=== PATIENT | male | born 1990 | race Caucasian/White ===

== ENCOUNTER 2017-08-12 23:11 | Emergency (ER) | payer MEDICAID, OTHER ==
[~2017-08-12] VITALS: Ht 167.6 cm; Wt 86.3 kg
[2017-08-12 23:23] VITALS: BP 126/102
[2017-08-13 00:17] LABS: URINE AMPHETAMINE SCREEN NEGATIVE (Neg); URINE BARBITUATE SCREEN NEGATIVE (Neg); URINE BENZODIAZEPINES SCREEN NEGATIVE (Neg); URINE CANNABINOID SCREEN POSITIVE (Neg); URINE COCAINE SCREEN NEGATIVE (Neg); URINE METHADONE SCREEN NEGATIVE (Neg); URINE OPIATE SCREEN NEGATIVE (Neg); URINE PHENCYCLIDINE SCREEN NEGATIVE (Neg)
[2017-08-13 00:25] LABS: CLARITY,URINE CLEAR (Clear); COLOR,URINE STRAW (Yellow); GLUCOSE, URINE NEGATIVE (Neg); KETONES,URINE TRACE mg/dl (Neg); LEUKOCYTE ESTERASE ,URINE NEGATIVE (Neg); NITRITES, URINE NEGATIVE (Neg); OCCULT BLOOD,URINE NEGATIVE (Neg); PROTEIN,URINE NEGATIVE (Neg); UROBILINOGEN,URINE 0.2 E.U/dL (0.2-1.0)
[2017-08-13 00:30] LABS: UA COLLECTION TYPE CLN CATCH MIDSTREAM
[2017-08-13] MEDS ORDERED: LORazepam 1 MG tablet PO ONE (00:50)
[2017-08-13] MEDS ORDERED: nicotine 21mg patch - 24 hr TD ONE (00:50)
[2017-08-13 01:07] LABS: ACETAMINOPHEN < 2.0 UG/ML (10-30); ALANINE AMINOTRANSFERASE 56 U/L (12-78); ALBUMIN 4.2 G/DL (3.4-5.0); ALBUMIN/GLOBULIN RATIO 1.1 (1.1-1.5); ALKALINE PHOSPHATASE 67 IU/L (46-116); ANION GAP 14 (8-16); ASPARTATE AMINO TRANSFERASE 35 U/L (10-37); BILIRUBIN,TOTAL 0.7 MG/DL (0.1-1.0); BLOOD UREA NITROGEN 11 MG/DL (7-18); BUN/CREATININE RATIO 14.9 (5.4-32.0); CALCIUM 9.1 MG/DL (8.5-10.1); CHLORIDE 101 MMOL/L (99-107); CREATININE 0.74 MG/DL (0.60-1.10); ETHANOL < 0.010 GM/DL (0.0-0.010); GLUCOSE 96 MG/DL (70-104); POTASSIUM 3.5 MMOL/L (3.5-5.1); SODIUM 138 MMOL/L (135-145); TOTAL CARBON DIOXIDE 23.4 MMOL/L (24-32); TOTAL PROTEIN 8.1 G/DL (6.4-8.2); eGFR > 90 ML/MIN
[2017-08-13 01:55] LABS: BASOPHILS # (AUTO) 0.1 X10'3 (0-0.2); BASOPHILS % (AUTO) 0.3 % (0-1); EOSINOPHILS # (AUTO) 0.4 X10'3 (0-0.9); EOSINOPHILS % (AUTO) 2.1 % (0-6); HEMATOCRIT 45.5 % (42.0-52.0); HEMOGLOBIN 15.7 g/dl (14.0-17.9); LYMPHOCYTES # (AUTO) 3.2 X10'3 (1.1-4.8); LYMPHOCYTES % (AUTO) 15.6 % (21-51); MEAN CORPUSCULAR HEMOGLOBIN 31.1 PG (27.0-31.0); MEAN CORPUSCULAR HGB CONC 34.5 % (33.0-36.5); MEAN CORPUSCULAR VOLUME 90.3 FL (78-98); MEAN PLATELET VOLUME 8.4 FL (7.4-10.4); MONOCYTES # (AUTO) 1.2 X10'3 (0-0.9); MONOCYTES % (AUTO) 5.7 % (2-12); NEUTROPHILS # (AUTO) 15.8 X10'3 (1.8-7.7); NEUTROPHILS % (AUTO) 76.3 % (42-75); PLATELET COUNT 364 X10'3 (140-440); RED BLOOD COUNT 5.04 X10'6 (4.70-6.10); WHITE BLOOD COUNT 20.6 X10'3 (4.5-11.0)
== END 2017-08-13 01:39 | disposition left against medical advice (07) ==
LOC: ER 23:12
DX: F41.9 Anxiety disorder, unspecified (principal); Z59.0 Homelessness; Z60.2 Problems related to living alone
CPT/HCPCS: 36415; 80053; 80305; 80320; 80329; 81003; 84443; 85025; 99284

== ENCOUNTER 2020-12-19 15:26 | Emergency (ER) | payer MEDICAID, OTHER ==
[~2020-12-19] VITALS: Ht 167.6 cm; Wt 90.6 kg
[2020-12-19 16:34] VITALS: BP 159/81
[2020-12-19 17:27] LABS: CLARITY,URINE CLEAR (Clear); COLOR,URINE YELLOW (Yellow); GLUCOSE, URINE NEGATIVE (Neg); KETONES,URINE 15 mg/dl (Neg); LEUKOCYTE ESTERASE ,URINE NEGATIVE (Neg); NITRITES, URINE NEGATIVE (Neg); OCCULT BLOOD,URINE TRACE-INTACT (Neg); PH,URINE 5.5 (4.8-8.0); PROTEIN,URINE NEGATIVE (Neg); UROBILINOGEN,URINE 0.2 E.U/dL (0.2-1.0)
[2020-12-19 17:32] LABS: UA COLLECTION TYPE CLN CATCH MIDSTREAM
[2020-12-19 17:34] LABS: BACTERIA,URINE NONE SEEN /HPF (Neg); MUCUS STRANDS NONE SEEN /LPF (Neg); RBC,URINE NONE SEEN /HPF (0-2); SQUAMOUS EPITHELIAL CELL,UR FEW /LPF (FEW); WBC,URINE 0-4 /HPF (0-4)
[2020-12-19 17:35] LABS: URINE AMPHETAMINE SCREEN NEGATIVE (Neg); URINE BARBITUATE SCREEN NEGATIVE (Neg); URINE BENZODIAZEPINES SCREEN NEGATIVE (Neg); URINE CANNABINOID SCREEN POSITIVE (Neg); URINE COCAINE SCREEN POSITIVE (Neg); URINE METHADONE SCREEN NEGATIVE (Neg); URINE OPIATE SCREEN NEGATIVE (Neg); URINE PHENCYCLIDINE SCREEN NEGATIVE (Neg)
[2020-12-19 17:39] LABS: D-DIMER < 0.19 MG/L FEU (0-0.50)
== END 2020-12-19 20:17 | disposition home or self-care (01) ==
LOC: ER 15:26
DX: R00.2 Palpitations (principal); F12.90 Cannabis use, unspecified, uncomplicated; Z59.0 Homelessness; Z72.89 Other problems related to lifestyle
CPT/HCPCS: 36415; 80305; 81001; 84484; 85379; 93005; 99284

== ENCOUNTER 2021-09-28 05:34 | Emergency (ER) | payer MEDICAID, OTHER ==
[~2021-09-28] VITALS: Ht 172.7 cm; Wt 90.9 kg
[2021-09-28 05:50] VITALS: BP 150/92
== END 2021-09-28 06:11 ==
LOC: ER 05:34
DX: F10.929 Alcohol use, unspecified with intoxication, unspecified (principal); F12.10 Cannabis abuse, uncomplicated; Z59.00 Homelessness unspecified; Y90.9 Presence of alcohol in blood, level not specified
CPT/HCPCS: 99283

== ENCOUNTER 2021-10-13 15:40 | Emergency (ER) | payer MEDICAID ==
[~2021-10-13] VITALS: Ht 170.2 cm; Wt 81.8 kg
[2021-10-13 15:48] VITALS: BP 139/80
[2021-10-13] MEDS ORDERED: oxyCODONE IR 5mg (immed. release) tablet PO ONE (18:35)
[2021-10-13] MEDS ORDERED: chlordiazePOXIDE 25mg capsule PO ONE (18:35)
[2021-10-13] MEDS ORDERED: ondansetron 4mg rapidly disintigrating tab PO ONE (18:35)
[2021-10-13 19:00] LABS: BASOPHILS # (AUTO) 0.1 X10'3 (0-0.2); BASOPHILS % (AUTO) 1.1 % (0-1); EOSINOPHILS # (AUTO) 0.7 X10'3 (0-0.9); EOSINOPHILS % (AUTO) 6.1 % (0-6); HEMATOCRIT 44.7 % (42.0-52.0); HEMOGLOBIN 15.5 g/dl (14.0-17.9); LYMPHOCYTES # (AUTO) 3.1 X10'3 (1.1-4.8); LYMPHOCYTES % (AUTO) 27.5 % (21-51); MEAN CORPUSCULAR HEMOGLOBIN 32.8 PG (27.0-31.0); MEAN CORPUSCULAR HGB CONC 34.7 g/dL (33.0-36.5); MEAN CORPUSCULAR VOLUME 94.5 FL (78-98); MEAN PLATELET VOLUME 7.6 FL (7.4-10.4); MONOCYTES # (AUTO) 0.5 X10'3 (0-0.9); MONOCYTES % (AUTO) 4.7 % (2-12); NEUTROPHILS # (AUTO) 6.8 X10'3 (1.8-7.7); NEUTROPHILS % (AUTO) 60.6 % (42-75); PLATELET COUNT 418 X10'3 (140-440); RED BLOOD COUNT 4.73 X10'6 (4.70-6.10); WHITE BLOOD COUNT 11.3 X10'3 (4.5-11.0)
[2021-10-13 19:08] LABS: ALANINE AMINOTRANSFERASE 53 U/L (12-78); ALBUMIN 3.7 G/DL (3.4-5.0); ALKALINE PHOSPHATASE 78 IU/L (46-116); ANION GAP 10 (8-16); ASPARTATE AMINO TRANSFERASE 34 U/L (10-37); BILIRUBIN,TOTAL 0.2 MG/DL (0.1-1.0); BLOOD UREA NITROGEN 9 MG/DL (7-18); BUN/CREATININE RATIO 11.8 (5.4-32.0); CALCIUM 8.7 MG/DL (8.5-10.1); CHLORIDE 103 MMOL/L (99-107); CREATININE 0.76 MG/DL (0.60-1.10); GLUCOSE 153 MG/DL (70-104); POTASSIUM 3.7 MMOL/L (3.5-5.1); SODIUM 136 MMOL/L (135-145); TOTAL CARBON DIOXIDE 22.6 MMOL/L (24-32); TOTAL PROTEIN 7.5 G/DL (6.4-8.2); eGFR > 90 ML/MIN
[2021-10-13 19:10] LABS: URINE AMPHETAMINE SCREEN NEGATIVE (Neg); URINE BARBITUATE SCREEN NEGATIVE (Neg); URINE BENZODIAZEPINES SCREEN NEGATIVE (Neg); URINE CANNABINOID SCREEN POSITIVE (Neg); URINE COCAINE SCREEN NEGATIVE (Neg); URINE METHADONE SCREEN NEGATIVE (Neg); URINE OPIATE SCREEN NEGATIVE (Neg); URINE PHENCYCLIDINE SCREEN NEGATIVE (Neg)
[2021-10-13 19:13] LABS: ETHANOL 0.044 GM/DL (0.0-0.010)
[2021-10-13] MEDS ORDERED: OXYC-481 PO (20:35)
== END 2021-10-13 21:06 | disposition home or self-care (01) ==
LOC: ER 15:40
DX: R07.9 Chest pain, unspecified (principal); M54.9 Dorsalgia, unspecified; R41.0 Disorientation, unspecified; F12.10 Cannabis abuse, uncomplicated; W19.XXXA Unspecified fall, initial encounter; Y93.89 Activity, other specified; Y92.89 Other specified places as the place of occurrence of the external cause; Y99.8 Other external cause status
CPT/HCPCS: 36415; 70450; 71046; 71250; 72125; 80053; 80305; 80320; 84484; 85025; 93005; 99285

== ENCOUNTER 2021-10-20 06:10 | Emergency (ER) | payer MEDICAID ==
[~2021-10-20] VITALS: Ht 167.6 cm; Wt 79.1 kg
[2021-10-20 07:50] VITALS: BP 121/70
== END 2021-10-20 09:11 | disposition home or self-care (01) ==
LOC: ER 06:12
DX: R07.81 Pleurodynia (principal); F12.90 Cannabis use, unspecified, uncomplicated; Z59.00 Homelessness unspecified; Y04.0XXA Assault by unarmed brawl or fight, initial encounter; Y93.89 Activity, other specified; Y92.89 Other specified places as the place of occurrence of the external cause; Y99.9 Unspecified external cause status
CPT/HCPCS: 71101; 99284

== ENCOUNTER 2023-09-10 11:33 | Emergency (ER) | payer MEDICAID ==
[~2023-09-10] VITALS: Ht 167.6 cm; Wt 76.2 kg
[2023-09-10 14:08] LABS: BILIRUBIN,URINE NEGATIVE (Neg); CLARITY,URINE CLEAR (Clear); COLOR,URINE YELLOW (Yellow); GLUCOSE, URINE NEGATIVE (Neg); KETONES,URINE NEGATIVE (Neg); LEUKOCYTE ESTERASE ,URINE NEGATIVE (Neg); NITRITES, URINE NEGATIVE (Neg); OCCULT BLOOD,URINE NEGATIVE (Neg); PROTEIN,URINE NEGATIVE (Neg); UROBILINOGEN,URINE 0.2 E.U/dL (0.2-1.0)
[2023-09-10 14:10] LABS: BASOPHILS # (AUTO) 0.1 X10'3 (0-0.2); BASOPHILS % (AUTO) 1.3 % (0-1); EOSINOPHILS # (AUTO) 0.3 X10'3 (0-0.9); EOSINOPHILS % (AUTO) 3.1 % (0-6); HEMATOCRIT 45.6 % (42.0-52.0); HEMOGLOBIN 15.2 g/dl (14.0-17.9); LYMPHOCYTES # (AUTO) 3.1 X10'3 (1.1-4.8); LYMPHOCYTES % (AUTO) 31.6 % (21-51); MEAN CORPUSCULAR HEMOGLOBIN 31.3 PG (27.0-31.0); MEAN CORPUSCULAR HGB CONC 33.2 g/dL (33.0-36.5); MEAN CORPUSCULAR VOLUME 94.3 FL (78-98); MEAN PLATELET VOLUME 7.2 FL (7.4-10.4); MONOCYTES # (AUTO) 0.6 X10'3 (0-0.9); MONOCYTES % (AUTO) 5.6 % (2-12); NEUTROPHILS # (AUTO) 5.8 X10'3 (1.8-7.7); NEUTROPHILS % (AUTO) 58.4 % (42-75); PLATELET COUNT 311 X10'3 (140-440); RED BLOOD COUNT 4.84 X10'6 (4.70-6.10); RED CELL DISTRIBUTION WIDTH 13.2 % (11.5-14.5); WHITE BLOOD COUNT 9.9 X10'3 (4.5-11.0)
[2023-09-10 14:15] LABS: ALBUMIN 3.6 G/DL (3.4-5.0); ANION GAP 8 (8-16); BLOOD UREA NITROGEN 9 MG/DL (7-18); BUN/CREATININE RATIO 12.9 (10.0-20.0); CALCIUM 8.7 MG/DL (8.5-10.1); CHLORIDE 105 MMOL/L (99-107); GLUCOSE 87 MG/DL (70-104); POTASSIUM 4.3 MMOL/L (3.5-5.1); SODIUM 140 MMOL/L (135-145); TOTAL CARBON DIOXIDE 26.9 MMOL/L (24-32); eCRCL 137 ML/MIN; eGFR > 90 ML/MIN
[2023-09-10 14:15] LABS: UA COLLECTION TYPE CLN CATCH MIDSTREAM
[2023-09-10 14:20] LABS: ETHANOL < 10 MG/DL (<10)
[2023-09-10 15:06] LABS: URINE AMPHETAMINE SCREEN NEGATIVE (Neg); URINE BARBITUATE SCREEN NEGATIVE (Neg); URINE BENZODIAZEPINES SCREEN NEGATIVE (Neg); URINE CANNABINOID SCREEN POSITIVE (Neg); URINE COCAINE SCREEN POSITIVE (Neg); URINE METHADONE SCREEN NEGATIVE (Neg); URINE OPIATE SCREEN NEGATIVE (Neg); URINE PHENCYCLIDINE SCREEN NEGATIVE (Neg)
[2023-09-10 15:11] LABS: THYROID STIMULATING HORMONE 0.32 ulU/ml (0.34-4.50)
[2023-09-10] MEDS: OLANZapine 2.5MG tablet PO ONE (18:28)
[2023-09-10] MEDS: OLANZapine 2.5MG tablet PO SCH (20:06)
[2023-09-11 05:50] VITALS: BP 104/57; PULSE 69; O2SAT 99
[2023-09-11] MEDS: nicotine 21mg patch - 24 hr TD SCH (08:42)
[2023-09-11 08:52] VITALS: RESP 14
[2023-09-11 15:15] VITALS: TEMP 97.7
== END 2023-09-11 15:41 | disposition home or self-care (01) ==
LOC: ER 11:34
DX: R45.851 Suicidal ideations (principal); Z20.822 Contact with and (suspected) exposure to COVID-19; F12.90 Cannabis use, unspecified, uncomplicated; F32.A Depression, unspecified
CPT/HCPCS: 36415; 80048; 80305; 80320; 81003; 84443; 85025; 87811; 99285

== ENCOUNTER 2023-09-20 10:19 | Emergency (ER) | payer MEDICAID ==
[~2023-09-20] VITALS: Ht 175.3 cm; Wt 71.3 kg
[2023-09-20 10:20] VITALS: BP 123/75
[2023-09-20 11:27] LABS: BASOPHILS # (AUTO) 0.1 X10'3 (0-0.2); BASOPHILS % (AUTO) 0.3 % (0-1); EOSINOPHILS # (AUTO) 0.2 X10'3 (0-0.9); EOSINOPHILS % (AUTO) 1.1 % (0-6); HEMATOCRIT 40.3 % (42.0-52.0); HEMOGLOBIN 13.7 g/dl (14.0-17.9); LYMPHOCYTES # (AUTO) 1.5 X10'3 (1.1-4.8); LYMPHOCYTES % (AUTO) 9.2 % (21-51); MEAN CORPUSCULAR HEMOGLOBIN 31.9 PG (27.0-31.0); MEAN CORPUSCULAR HGB CONC 34.1 g/dL (33.0-36.5); MEAN CORPUSCULAR VOLUME 93.7 FL (78-98); MEAN PLATELET VOLUME 7.8 FL (7.4-10.4); MONOCYTES # (AUTO) 1.7 X10'3 (0-0.9); MONOCYTES % (AUTO) 10.1 % (2-12); NEUTROPHILS # (AUTO) 13.1 X10'3 (1.8-7.7); NEUTROPHILS % (AUTO) 79.3 % (42-75); PLATELET COUNT 302 X10'3 (140-440); RED CELL DISTRIBUTION WIDTH 13.1 % (11.5-14.5); WHITE BLOOD COUNT 16.5 X10'3 (4.5-11.0)
[2023-09-20 11:43] LABS: ALANINE AMINOTRANSFERASE 30 U/L (12-78); ALBUMIN 3.3 G/DL (3.4-5.0); ALBUMIN/GLOBULIN RATIO 0.8 (1.1-1.5); ALKALINE PHOSPHATASE 60 IU/L (46-116); ANION GAP 11 (8-16); ASPARTATE AMINO TRANSFERASE 23 U/L (10-37); BLOOD UREA NITROGEN 10 MG/DL (7-18); BUN/CREATININE RATIO 13.7 (10.0-20.0); CALCIUM 9.1 MG/DL (8.5-10.1); CHLORIDE 97 MMOL/L (99-107); CREATININE 0.73 MG/DL (0.60-1.10); GLUCOSE 94 MG/DL (70-104); LIPASE 12 U/L (16-77); POTASSIUM 3.2 MMOL/L (3.5-5.1); SODIUM 134 MMOL/L (135-145); TOTAL CARBON DIOXIDE 25.9 MMOL/L (24-32); TOTAL PROTEIN 7.6 G/DL (6.4-8.2); eCRCL 145 ML/MIN; eGFR > 90 ML/MIN
[2023-09-20 12:39] LABS: BILIRUBIN,URINE MODERATE (Neg); COLOR,URINE YELLOW (Yellow); GLUCOSE, URINE NEGATIVE (Neg); KETONES,URINE 40 mg/dl (Neg); LEUKOCYTE ESTERASE ,URINE NEGATIVE (Neg); NITRITES, URINE NEGATIVE (Neg); OCCULT BLOOD,URINE TRACE-INTACT (Neg); PROTEIN,URINE TRACE mg/dl (Neg)
[2023-09-20 12:46] LABS: CLARITY,URINE SLIGHTLY CLOUDY (Clear); MUCUS STRANDS MODERATE /LPF (Neg); UA COLLECTION TYPE NON-SPECIFIED
[2023-09-20 12:47] LABS: AMORPHOUS URATES 1+; BACTERIA,URINE FEW /HPF (Neg); SQUAMOUS EPITHELIAL CELL,UR FEW /LPF (FEW)
[2023-09-20 12:48] LABS: SPERM FEW /HPF (NEGATIVE); WBC,URINE 0-4 /HPF (0-4)
[2023-09-20] MEDS ORDERED: AMOX-117 PO (13:17)
[2023-09-20 13:28] VITALS: PULSE 99; RESP 18; TEMP 100.2; O2SAT 99
== END 2023-09-20 13:31 | disposition home or self-care (01) ==
LOC: ER 10:19
DX: K57.92 Diverticulitis of intestine, part unspecified, without perforation or abscess without bleeding (principal); F12.90 Cannabis use, unspecified, uncomplicated
CPT/HCPCS: 36415; 74176; 80053; 81001; 83690; 85025; 99284

== ENCOUNTER 2023-09-30 14:10 | Inpatient (IN) | payer MEDICAID ==
[~2023-09-30] VITALS: Ht 167.6 cm; Wt 67.5 kg
[~2023-09-30 14:10] MED LIST: AMOX-117 PO
[2023-09-30 14:58] LABS: MEAN PLATELET VOLUME 6.6 FL (7.4-10.4); RED CELL DISTRIBUTION WIDTH 12.9 % (11.5-14.5)
[2023-09-30 15:00] LABS: BASOPHILS % (AUTO) 0.2 % (0-1); EOSINOPHILS # (AUTO) 0.1 X10'3 (0-0.9); EOSINOPHILS % (AUTO) 0.3 % (0-6); HEMATOCRIT 36.1 % (42.0-52.0); LYMPHOCYTES # (AUTO) 1.6 X10'3 (1.1-4.8); LYMPHOCYTES % (AUTO) 7.5 % (21-51); MEAN CORPUSCULAR HEMOGLOBIN 30.7 PG (27.0-31.0); MEAN CORPUSCULAR HGB CONC 33.4 g/dL (33.0-36.5); MEAN CORPUSCULAR VOLUME 92.1 FL (78-98); MONOCYTES # (AUTO) 1.6 X10'3 (0-0.9); MONOCYTES % (AUTO) 7.4 % (2-12); NEUTROPHILS # (AUTO) 18.6 X10'3 (1.8-7.7); NEUTROPHILS % (AUTO) 84.6 % (42-75); PLATELET COUNT 541 X10'3 (140-440); RED BLOOD COUNT 3.91 X10'6 (4.70-6.10)
[2023-09-30 15:07] LABS: ALBUMIN/GLOBULIN RATIO 0.6 (1.1-1.5); ALKALINE PHOSPHATASE 71 IU/L (46-116); ASPARTATE AMINO TRANSFERASE 13 U/L (10-37); BILIRUBIN,DIRECT 0.1 MG/DL (0-0.3); BILIRUBIN,TOTAL 0.4 MG/DL (0.1-1.0); LIPASE 11 U/L (16-77); TOTAL PROTEIN 7.1 G/DL (6.4-8.2)
[2023-09-30 15:23] LABS: TOTAL CELLS COUNTED 100
[2023-09-30 15:24] LABS: PLATELET ESTIMATE INCREASED
[2023-09-30 15:25] LABS: POIKILOCYTOSIS FEW
[2023-09-30] MEDS: morphine 2 MG/ML inj. syringe IV PRN ×2 (15:32→18:29)
[2023-09-30] MEDS: ondansetron/PF 4mg/2ml inj IV ONE (15:32)
[2023-09-30] MEDS: normal saline 1000ML IV soln IVB ONE (15:33)
[2023-09-30] MEDS ORDERED: HYDROcodone/acetaminophen 5mg/325mg tablet PO PRN (15:35)
[2023-09-30] MEDS ORDERED: magnesium 4gm in 100ml NS 100 ML IV PRN (15:35)
[2023-09-30] MEDS ORDERED: morphine 2 MG/ML inj. syringe IV PRN (15:35)
[2023-09-30] MEDS ORDERED: acetaminophen 325mg tablet PO PRN (15:35)
[2023-09-30 15:40] LABS: ALANINE AMINOTRANSFERASE 18 U/L (12-78); ALBUMIN 2.7 G/DL (3.4-5.0)
[2023-09-30 15:41] LABS: BILIRUBIN,URINE NEGATIVE (Neg); CLARITY,URINE CLEAR (Clear); COLOR,URINE YELLOW (Yellow); GLUCOSE, URINE NEGATIVE (Neg); KETONES,URINE 15 mg/dl (Neg); LEUKOCYTE ESTERASE ,URINE NEGATIVE (Neg); NITRITES, URINE NEGATIVE (Neg); OCCULT BLOOD,URINE NEGATIVE (Neg); PH,URINE 6.5 (4.8-8.0); PROTEIN,URINE NEGATIVE (Neg)
[2023-09-30 15:45] LABS: URINE AMPHETAMINE SCREEN POSITIVE (Neg); URINE BARBITUATE SCREEN NEGATIVE (Neg); URINE BENZODIAZEPINES SCREEN NEGATIVE (Neg); URINE CANNABINOID SCREEN POSITIVE (Neg); URINE COCAINE SCREEN NEGATIVE (Neg); URINE METHADONE SCREEN NEGATIVE (Neg); URINE PHENCYCLIDINE SCREEN NEGATIVE (Neg)
[2023-09-30 15:46] LABS: UA COLLECTION TYPE VOIDED
[2023-09-30] MEDS: metroNIDAZOLE-Flagyl 500mg/NS 100 ML IV ONE (15:58)
[2023-09-30] MEDS ORDERED: NO HOME MEDS (17:06)
[2023-09-30 17:09] LABS: ALBUMIN 2.7 G/DL (3.4-5.0); ANION GAP 9 (8-16); BLOOD UREA NITROGEN 5 MG/DL (7-18); BUN/CREATININE RATIO 7.9 (10.0-20.0); CALCIUM 8.7 MG/DL (8.5-10.1); CHLORIDE 97 MMOL/L (99-107); CREATININE 0.63 MG/DL (0.60-1.10); GLUCOSE 91 MG/DL (70-104); POTASSIUM 3.4 MMOL/L (3.5-5.1); SODIUM 133 MMOL/L (135-145); TOTAL CARBON DIOXIDE 27.3 MMOL/L (24-32); eCRCL 152 ML/MIN; eGFR > 90 ML/MIN
[2023-09-30] MEDS: levoFLOXACIN-Levaquin 500mg/D5 100 ML IV ONE (17:12)
[2023-09-30 18:20] VITALS: BP 120/62; PULSE 97; RESP 20; TEMP 98.4; O2SAT 97
[2023-09-30 19:00] VITALS: RESP 18; O2SAT 99
[2023-09-30] MEDS: normal saline 1000ml 1,000 ML IV SCH (20:00)
[2023-09-30] MEDS: levoFLOXACIN-Levaquin 250mg/D5 50 ML IV ONE (20:07)
[2023-09-30] MEDS: heparin, porcine 5000 units/ml vial SQ SCH (20:19)
[2023-09-30] MEDS: HYDROcodone/acetaminophen 10/325mg tab PO PRN (20:28)
[2023-09-30 22:00] VITALS: BP 106/58; PULSE 96; RESP 16; TEMP 98.9; O2SAT 99
[2023-09-30] MEDS: metroNIDAZOLE-Flagyl 500mg/NS 100 ML IV SCH (23:59)
[2023-10-01] MEDS ORDERED: potassium Cl 20 mEq SR tablet PO PRN ×2 (01:40)
[2023-10-01] MEDS ORDERED: magnesium 2GM in 50ml NS 50 ML IV PRN (01:40)
[2023-10-01] MEDS ORDERED: magnesium Cl slow-release 64mg tablet PO PRN (01:40)
[2023-10-01] MEDS ORDERED: magnesium 4gm in 100ml NS 100 ML IV PRN (01:40)
[2023-10-01] MEDS: potassium Cl 40MEQ/1/2NS 520ml 520 ML IV PRN (02:28)
[2023-10-01 05:52] LABS: BASOPHILS # (AUTO) 0.1 X10'3 (0-0.2); BASOPHILS % (AUTO) 0.2 % (0-1); EOSINOPHILS # (AUTO) 0.1 X10'3 (0-0.9); EOSINOPHILS % (AUTO) 0.5 % (0-6); HEMATOCRIT 35.5 % (42.0-52.0); HEMOGLOBIN 11.8 g/dl (14.0-17.9); LYMPHOCYTES # (AUTO) 1.7 X10'3 (1.1-4.8); LYMPHOCYTES % (AUTO) 6.9 % (21-51); MEAN CORPUSCULAR HEMOGLOBIN 30.6 PG (27.0-31.0); MEAN CORPUSCULAR HGB CONC 33.2 g/dL (33.0-36.5); MEAN CORPUSCULAR VOLUME 92.3 FL (78-98); MEAN PLATELET VOLUME 7.1 FL (7.4-10.4); MONOCYTES # (AUTO) 1.8 X10'3 (0-0.9); MONOCYTES % (AUTO) 7.3 % (2-12); NEUTROPHILS # (AUTO) 20.7 X10'3 (1.8-7.7); NEUTROPHILS % (AUTO) 85.1 % (42-75); PLATELET COUNT 531 X10'3 (140-440); RED BLOOD COUNT 3.85 X10'6 (4.70-6.10); RED CELL DISTRIBUTION WIDTH 13.2 % (11.5-14.5); WHITE BLOOD COUNT 24.3 X10'3 (4.5-11.0)
[2023-10-01 06:00] VITALS: BP 115/69; PULSE 77; RESP 16; TEMP 98.3; O2SAT 98
[2023-10-01 06:06] LABS: ALBUMIN 2.3 G/DL (3.4-5.0); ANION GAP 8 (8-16); BLOOD UREA NITROGEN 4 MG/DL (7-18); BUN/CREATININE RATIO 6.3 (10.0-20.0); C-REACTIVE PROTEIN 22.85 MG/DL (0.0-0.5); CALCIUM 8.4 MG/DL (8.5-10.1); CHLORIDE 102 MMOL/L (99-107); CREATININE 0.63 MG/DL (0.60-1.10); GLUCOSE 92 MG/DL (70-104); POTASSIUM 4.1 MMOL/L (3.5-5.1); SODIUM 137 MMOL/L (135-145); TOTAL CARBON DIOXIDE 27.3 MMOL/L (24-32); eCRCL 152 ML/MIN; eGFR > 90 ML/MIN
[2023-10-01] MEDS: piperacillin/tazo 3.375gm/50ml 50 ML IV SCH (08:57)
[2023-10-01] MEDS: nicotine 7mg patch - 24hr TD SCH (09:07)
[2023-10-01] MEDS: docusate sod 100mg capsule PO ONE (09:18)
[2023-10-01] MEDS: K and/or MAG REPLACEMENT MC SCH (09:24)
[2023-10-01 12:00] VITALS: BP 109/68; PULSE 81; RESP 16; TEMP 98.4; O2SAT 98
[2023-10-01] MEDS ORDERED: levoFLOXACIN-Levaquin 750MG/D5 150 ML IV SCH (14:00)
[2023-10-01 19:00] VITALS: BP 107/67; PULSE 86; RESP 13; TEMP 98.4; O2SAT 97
[2023-10-01 20:00] VITALS: RESP 16; O2SAT 97
[2023-10-01] MEDS: lactulose 20gm/30ml cup PO SCH (20:30)
[2023-10-01] MEDS: docusate sod 100mg capsule PO SCH (20:30)
[2023-10-01 22:00] VITALS: BP 119/76; PULSE 74; RESP 14; TEMP 97.8; O2SAT 98
[2023-10-02 06:00] VITALS: BP 114/73; PULSE 62; RESP 12; TEMP 97; O2SAT 98
[2023-10-02 06:06] LABS: BASOPHILS # (AUTO) 0.1 X10'3 (0-0.2); BASOPHILS % (AUTO) 0.4 % (0-1); EOSINOPHILS # (AUTO) 0.2 X10'3 (0-0.9); EOSINOPHILS % (AUTO) 1.2 % (0-6); HEMATOCRIT 34.8 % (42.0-52.0); HEMOGLOBIN 11.4 g/dl (14.0-17.9); LYMPHOCYTES # (AUTO) 2.2 X10'3 (1.1-4.8); LYMPHOCYTES % (AUTO) 11.1 % (21-51); MEAN CORPUSCULAR HEMOGLOBIN 30.4 PG (27.0-31.0); MEAN CORPUSCULAR HGB CONC 32.8 g/dL (33.0-36.5); MEAN CORPUSCULAR VOLUME 92.7 FL (78-98); MEAN PLATELET VOLUME 6.8 FL (7.4-10.4); MONOCYTES % (AUTO) 9.8 % (2-12); NEUTROPHILS # (AUTO) 15.7 X10'3 (1.8-7.7); NEUTROPHILS % (AUTO) 77.5 % (42-75); PLATELET COUNT 585 X10'3 (140-440); RED BLOOD COUNT 3.76 X10'6 (4.70-6.10); RED CELL DISTRIBUTION WIDTH 13.1 % (11.5-14.5); WHITE BLOOD COUNT 20.2 X10'3 (4.5-11.0)
[2023-10-02 06:25] LABS: ALBUMIN 2.1 G/DL (3.4-5.0); ANION GAP 6 (8-16); BLOOD UREA NITROGEN 3 MG/DL (7-18); BUN/CREATININE RATIO 4.2 (10.0-20.0); CALCIUM 8.4 MG/DL (8.5-10.1); CHLORIDE 101 MMOL/L (99-107); CREATININE 0.71 MG/DL (0.60-1.10); GLUCOSE 91 MG/DL (70-104); POTASSIUM 3.8 MMOL/L (3.5-5.1); SODIUM 136 MMOL/L (135-145); TOTAL CARBON DIOXIDE 29.1 MMOL/L (24-32); eCRCL 135 ML/MIN; eGFR > 90 ML/MIN
[2023-10-02] MEDS: piperacillin/tazo 3.375gm/50ml 50 ML IV SCH (09:00)
[2023-10-02 11:00] VITALS: BP 121/68; PULSE 62; RESP 16; TEMP 98.8; O2SAT 99
[2023-10-02] MEDS: ondansetron/PF 4mg/2ml inj IV PRN (15:18)
[2023-10-02 18:00] VITALS: BP 120/79; PULSE 72; RESP 14; TEMP 98.9; O2SAT 98
[2023-10-02 20:03] LABS: GASTRIC OCCULT BLOOD NEGATIVE (Neg)
[2023-10-02] MEDS: diatr meglu/diatrizoate 30ml oral sol.-(3 dose) bottle PO SCH (21:54)
[2023-10-02 22:00] VITALS: BP 119/78; PULSE 67; RESP 14; TEMP 98.1; O2SAT 98
[2023-10-03] MEDS: piperacillin/tazo 3.375gm/50ml 50 ML IV SCH (05:00)
[2023-10-03 05:56] LABS: BASOPHILS # (AUTO) 0.1 X10'3 (0-0.2); BASOPHILS % (AUTO) 0.6 % (0-1); EOSINOPHILS % (AUTO) 0 % (0-6); HEMOGLOBIN 12.4 g/dl (14.0-17.9); LYMPHOCYTES # (AUTO) 1.1 X10'3 (1.1-4.8); LYMPHOCYTES % (AUTO) 5.8 % (21-51); MEAN CORPUSCULAR HEMOGLOBIN 30.7 PG (27.0-31.0); MEAN CORPUSCULAR HGB CONC 33.5 g/dL (33.0-36.5); MEAN CORPUSCULAR VOLUME 91.6 FL (78-98); MEAN PLATELET VOLUME 6.6 FL (7.4-10.4); MONOCYTES # (AUTO) 1.1 X10'3 (0-0.9); MONOCYTES % (AUTO) 5.8 % (2-12); NEUTROPHILS # (AUTO) 16.9 X10'3 (1.8-7.7); NEUTROPHILS % (AUTO) 87.8 % (42-75); PLATELET COUNT 650 X10'3 (140-440); RED BLOOD COUNT 4.04 X10'6 (4.70-6.10); RED CELL DISTRIBUTION WIDTH 12.9 % (11.5-14.5); WHITE BLOOD COUNT 19.2 X10'3 (4.5-11.0)
[2023-10-03 06:07] LABS: ALBUMIN 2.1 G/DL (3.4-5.0); ANION GAP 8 (8-16); BLOOD UREA NITROGEN 4 MG/DL (7-18); BUN/CREATININE RATIO 7.5 (10.0-20.0); CALCIUM 8.3 MG/DL (8.5-10.1); CHLORIDE 101 MMOL/L (99-107); CREATININE 0.53 MG/DL (0.60-1.10); GLUCOSE 105 MG/DL (70-104); POTASSIUM 3.9 MMOL/L (3.5-5.1); SODIUM 135 MMOL/L (135-145); TOTAL CARBON DIOXIDE 25.7 MMOL/L (24-32); eCRCL 181 ML/MIN; eGFR > 90 ML/MIN
[2023-10-03 10:00] VITALS: BP 128/82; PULSE 59; RESP 14; TEMP 98.1; O2SAT 99
[2023-10-03] MEDS ORDERED: iohexol 300mg/ml 100ml inj. ONE (10:33)
[2023-10-03] MEDS: mineral oil 133ml enema RC ONE (11:10)
[2023-10-03 12:02] VITALS: BP 126/76; PULSE 68; RESP 14; TEMP 96.8; O2SAT 99
[2023-10-03] MEDS: magnesium hydroxide 30ml (MOM) UD suspension PO PRN (17:28)
[2023-10-03 18:00] VITALS: BP 120/74; PULSE 63; RESP 14; TEMP 98; O2SAT 96
[2023-10-03 22:00] VITALS: BP 116/76; PULSE 78; RESP 16; TEMP 98.8; O2SAT 98
[2023-10-04 06:00] LABS: BASOPHILS # (AUTO) 0.1 X10'3 (0-0.2); HEMOGLOBIN 12.4 g/dl (14.0-17.9); LYMPHOCYTES # (AUTO) 1.4 X10'3 (1.1-4.8); LYMPHOCYTES % (AUTO) 7.6 % (21-51); MEAN PLATELET VOLUME 6.8 FL (7.4-10.4); MONOCYTES # (AUTO) 1.1 X10'3 (0-0.9); RED CELL DISTRIBUTION WIDTH 12.9 % (11.5-14.5); WHITE BLOOD COUNT 18.8 X10'3 (4.5-11.0)
[2023-10-04 06:04] LABS: BASOPHILS % (AUTO) 0.5 % (0-1); EOSINOPHILS # (AUTO) 0.1 X10'3 (0-0.9); EOSINOPHILS % (AUTO) 0.5 % (0-6); HEMATOCRIT 36.4 % (42.0-52.0); MEAN CORPUSCULAR HEMOGLOBIN 31.1 PG (27.0-31.0); MEAN CORPUSCULAR HGB CONC 34.2 g/dL (33.0-36.5); MEAN CORPUSCULAR VOLUME 90.9 FL (78-98); NEUTROPHILS % (AUTO) 85.4 % (42-75); PLATELET COUNT 666 X10'3 (140-440)
[2023-10-04 06:14] LABS: ALBUMIN 2.1 G/DL (3.4-5.0); ANION GAP 8 (8-16); BLOOD UREA NITROGEN 5 MG/DL (7-18); BUN/CREATININE RATIO 9.6 (10.0-20.0); C-REACTIVE PROTEIN 9.97 MG/DL (0.0-0.5); CALCIUM 8.1 MG/DL (8.5-10.1); CHLORIDE 100 MMOL/L (99-107); CREATININE 0.52 MG/DL (0.60-1.10); GLUCOSE 94 MG/DL (70-104); POTASSIUM 3.4 MMOL/L (3.5-5.1); SODIUM 135 MMOL/L (135-145); TOTAL CARBON DIOXIDE 27.1 MMOL/L (24-32); eCRCL 184 ML/MIN; eGFR > 90 ML/MIN
[2023-10-04 07:04] VITALS: BP 135/86; PULSE 65; RESP 16; TEMP 98.5; O2SAT 95
[2023-10-04] MEDS: bisacodyl 10mg suppository rectal RC PRN (11:04)
[2023-10-04 11:16] VITALS: BP 130/80; PULSE 57; RESP 20; TEMP 98; O2SAT 98
[2023-10-04] MEDS: bisacodyl 10mg suppository rectal RC ONE (12:08)
[2023-10-04] MEDS: magnesium hydroxide 30ml (MOM) UD suspension PO ONE (12:08)
[2023-10-04 18:00] VITALS: BP 134/79; PULSE 89; RESP 16; TEMP 98.4; O2SAT 99
[2023-10-04 20:00] VITALS: RESP 16; O2SAT 99
[2023-10-04 22:00] VITALS: BP 129/81; PULSE 72; RESP 16; TEMP 98.5; O2SAT 97
[2023-10-05 06:00] VITALS: BP 138/85; PULSE 54; RESP 20; TEMP 98.3; O2SAT 98
[2023-10-05 06:05] LABS: BASOPHILS # (AUTO) 0.1 X10'3 (0-0.2); EOSINOPHILS # (AUTO) 0.1 X10'3 (0-0.9); HEMOGLOBIN 12.6 g/dl (14.0-17.9); WHITE BLOOD COUNT 20.4 X10'3 (4.5-11.0)
[2023-10-05 06:07] LABS: BASOPHILS % (AUTO) 0.3 % (0-1); EOSINOPHILS % (AUTO) 0.4 % (0-6); HEMATOCRIT 37.6 % (42.0-52.0); LYMPHOCYTES # (AUTO) 1.7 X10'3 (1.1-4.8); LYMPHOCYTES % (AUTO) 8.3 % (21-51); MEAN CORPUSCULAR HEMOGLOBIN 30.6 PG (27.0-31.0); MEAN CORPUSCULAR HGB CONC 33.5 g/dL (33.0-36.5); MEAN CORPUSCULAR VOLUME 91.2 FL (78-98); MEAN PLATELET VOLUME 7.1 FL (7.4-10.4); MONOCYTES # (AUTO) 1.3 X10'3 (0-0.9); MONOCYTES % (AUTO) 6.5 % (2-12); NEUTROPHILS # (AUTO) 17.2 X10'3 (1.8-7.7); NEUTROPHILS % (AUTO) 84.5 % (42-75); PLATELET COUNT 663 X10'3 (140-440); RED BLOOD COUNT 4.12 X10'6 (4.70-6.10); RED CELL DISTRIBUTION WIDTH 12.6 % (11.5-14.5)
[2023-10-05 06:12] LABS: ALBUMIN 2.1 G/DL (3.4-5.0); ANION GAP 10 (8-16); BLOOD UREA NITROGEN 6 MG/DL (7-18); BUN/CREATININE RATIO 12.8 (10.0-20.0); CHLORIDE 97 MMOL/L (99-107); CREATININE 0.47 MG/DL (0.60-1.10); GLUCOSE 90 MG/DL (70-104); POTASSIUM 3.3 MMOL/L (3.5-5.1); SODIUM 132 MMOL/L (135-145); TOTAL CARBON DIOXIDE 24.8 MMOL/L (24-32); eCRCL 204 ML/MIN; eGFR > 90 ML/MIN
[2023-10-05] MEDS ORDERED: potassium Cl 20 mEq SR tablet PO PRN (07:30)
[2023-10-05] MEDS ORDERED: magnesium Cl slow-release 64mg tablet PO PRN (07:30)
[2023-10-05] MEDS ORDERED: potassium Cl 40MEQ/1/2NS 520ml 520 ML IV PRN (07:30)
[2023-10-05] MEDS ORDERED: magnesium 4gm in 100ml NS 100 ML IV PRN (07:30)
[2023-10-05] MEDS ORDERED: magnesium 2GM in 50ml NS 50 ML IV PRN (07:30)
[2023-10-05 08:00] VITALS: RESP 16; O2SAT 99
[2023-10-05] MEDS: K and/or MAG REPLACEMENT MC SCH (08:00)
[2023-10-05 08:09] LABS: PLATELET ESTIMATE INCREASED; TOTAL CELLS COUNTED 100
[2023-10-05 08:10] LABS: LARGE PLATELETS FEW; POIKILOCYTOSIS FEW; TOXIC GRANULATION 2+
[2023-10-05] MEDS: potassium Cl 20 mEq SR tablet PO PRN (08:47)
[2023-10-05 10:00] VITALS: BP 125/82; PULSE 55; RESP 16; TEMP 97.9; O2SAT 98
[2023-10-05] MEDS: PEG 3350/Na sulf,bicarb,Cl/KCl oral sol 4 liter bottle PO ONE (12:49)
[2023-10-05 18:00] VITALS: BP 128/85; PULSE 52; RESP 16; TEMP 98.1; O2SAT 98
[2023-10-05] MEDS: morphine 4 MG/ML inj SYRINge IV PRN (18:54)
[2023-10-05 20:00] VITALS: RESP 16; O2SAT 98
[2023-10-05 22:00] VITALS: BP 129/77; PULSE 58; RESP 14; TEMP 97.8; O2SAT 95
[2023-10-06 08:00] VITALS: RESP 16
[2023-10-06 08:50] LABS: BASOPHILS # (AUTO) 0.1 X10'3 (0-0.2); BASOPHILS % (AUTO) 0.6 % (0-1); EOSINOPHILS # (AUTO) 0.1 X10'3 (0-0.9); EOSINOPHILS % (AUTO) 0.9 % (0-6); HEMATOCRIT 38.3 % (42.0-52.0); HEMOGLOBIN 12.9 g/dl (14.0-17.9); LYMPHOCYTES # (AUTO) 2.3 X10'3 (1.1-4.8); LYMPHOCYTES % (AUTO) 16.5 % (21-51); MEAN CORPUSCULAR HEMOGLOBIN 30.7 PG (27.0-31.0); MEAN CORPUSCULAR HGB CONC 33.8 g/dL (33.0-36.5); MEAN CORPUSCULAR VOLUME 90.7 FL (78-98); MEAN PLATELET VOLUME 6.6 FL (7.4-10.4); NEUTROPHILS # (AUTO) 10.5 X10'3 (1.8-7.7); PLATELET COUNT 653 X10'3 (140-440); RED BLOOD COUNT 4.22 X10'6 (4.70-6.10); RED CELL DISTRIBUTION WIDTH 12.8 % (11.5-14.5)
[2023-10-06 18:00] VITALS: BP 121/81; PULSE 60; RESP 12; TEMP 97.9; O2SAT 96
[2023-10-06 20:00] VITALS: RESP 12; O2SAT 96
[2023-10-06 22:00] VITALS: BP 119/83; PULSE 70; RESP 16; TEMP 97.8; O2SAT 98
[2023-10-07 06:54] VITALS: BP 123/78; PULSE 61; RESP 16; TEMP 97.9; O2SAT 99
[2023-10-07 08:00] VITALS: RESP 16
[2023-10-07 18:00] VITALS: BP 123/88; PULSE 68; RESP 18; TEMP 98.4; O2SAT 98
[2023-10-07 20:10] VITALS: RESP 18
[2023-10-07] MEDS: diatr meglu/diatrizoate 30ml oral sol.-(3 dose) bottle PO SCH (21:23)
[2023-10-07 22:00] VITALS: BP 118/84; PULSE 103; RESP 20; TEMP 97.7; O2SAT 92
[2023-10-08] VITALS (18 sets, daily range): BP systolic 116–159; BP diastolic 72–99; PULSE 69–94; RESP 14–33; TEMP 97.8–98.3; O2SAT 9–100
[2023-10-08] MEDS ORDERED: iohexol 300mg/ml 100ml inj. ONE (08:58)
[2023-10-08] MEDS: oxyCODONE/APAP 5-325mg tablet PO ONE (13:03)
[2023-10-08] MEDS: oxyCODONE/APAP 5-325mg tablet PO PRN (17:12)
[2023-10-08] MEDS ORDERED: labetalol 20mg/4ml (5mg/ml) syringe IV PRN (18:35)
[2023-10-08] MEDS ORDERED: ondansetron/PF 4mg/2ml inj IV PRN (18:35)
[2023-10-08] MEDS ORDERED: morphine 2 MG/ML inj. syringe IV PRN (18:35)
[2023-10-08] MEDS ORDERED: fentaNYL/PF 50MCG/1 ML 2ML syringe IV PRN (18:35)
[2023-10-08] MEDS ORDERED: hydrALAZINE 20mg/ml inj. IV PRN (18:35)
[2023-10-08] MEDS ORDERED: sevoflurane 250ml liquid IH ONE (18:55)
[2023-10-08] MEDS ORDERED: fentaNYL/PF 50MCG/1 ML 2ML syringe ONE ×2 (18:57→19:35)
[2023-10-08] MEDS ORDERED: midazolam 1 mg/ML 2ml injection ONE (18:57)
[2023-10-08] MEDS ORDERED: propofol inj 20 ML IV ONE (18:58)
[2023-10-08] MEDS ORDERED: rocuronium 10mg/ml inj IV ONE ×2 (18:58→19:35)
[2023-10-08] MEDS ORDERED: dexamethasone sod phosphate 4mg/ml inj. ONE (18:58)
[2023-10-08] MEDS ORDERED: ondansetron/PF 4mg/2ml inj ONE (18:58)
[2023-10-08] MEDS ORDERED: LIDOcaine 2% (20mg/ml) 5ml vial ONE (18:58)
[2023-10-08] MEDS ORDERED: acetaminophen 1,000mg/100ml IV 100 ML IV ONE (19:10)
[2023-10-08] MEDS ORDERED: sugammadex 200mg/2ml injection IV ONE (19:36)
[2023-10-08] MEDS ORDERED: morphine 10mg/ml inj. ONE (20:29)
[2023-10-08] MEDS: morphine 4 MG/ML inj SYRINge IV PRN (20:49)
[2023-10-08] MEDS ORDERED: normal saline 1000ml 1,000 ML IV SCH (20:55)
[2023-10-08] MEDS ORDERED: naloxone 0.4 mg/ml inj IV PRN (20:55)
[2023-10-08] MEDS: HYDROmorph/NS 0.2 mg/ml PCA 100 ML IV SCH (21:00)
[2023-10-08] MEDS: fentaNYL/PF 50MCG/1 ML 2ML syringe IV PRN (21:04)
[2023-10-08] MEDS: HYDROmorphone/PF 0.2 MG/ML SYRINGE IV PRN ×2 (21:22→21:29)
[2023-10-09] VITALS (8 sets, daily range): BP systolic 124–137; BP diastolic 73–89; PULSE 70–91; RESP 16–20; TEMP 97.3–98.9; O2SAT 95–99
[2023-10-09] MEDS: ringers solution, lacted 1,000 ML IV SCH (00:49)
[2023-10-09 06:25] LABS: ALANINE AMINOTRANSFERASE 24 U/L (12-78); ALBUMIN 2.4 G/DL (3.4-5.0); ALBUMIN/GLOBULIN RATIO 0.6 (1.1-1.5); ALKALINE PHOSPHATASE 54 IU/L (46-116); ANION GAP 5 (8-16); ASPARTATE AMINO TRANSFERASE 11 U/L (10-37); BILIRUBIN,TOTAL 0.4 MG/DL (0.1-1.0); BLOOD UREA NITROGEN 4 MG/DL (7-18); BUN/CREATININE RATIO 6.8 (10.0-20.0); CALCIUM 8.6 MG/DL (8.5-10.1); CHLORIDE 99 MMOL/L (99-107); CREATININE 0.59 MG/DL (0.60-1.10); GLUCOSE 132 MG/DL (70-104); POTASSIUM 4.6 MMOL/L (3.5-5.1); SODIUM 133 MMOL/L (135-145); TOTAL CARBON DIOXIDE 29.3 MMOL/L (24-32); TOTAL PROTEIN 6.5 G/DL (6.4-8.2); eCRCL 162 ML/MIN; eGFR > 90 ML/MIN
[2023-10-09] MEDS: PCA WASTE DOCUMENTATION 1 MG ML MC SCH (17:19)
[2023-10-10 06:00] VITALS: BP 128/80; PULSE 98; RESP 18; TEMP 98.8; O2SAT 93
[2023-10-10 06:42] LABS: BASOPHILS # (AUTO) 0.1 X10'3 (0-0.2); BASOPHILS % (AUTO) 0.4 % (0-1); EOSINOPHILS # (AUTO) 0.2 X10'3 (0-0.9); HEMATOCRIT 37.3 % (42.0-52.0); HEMOGLOBIN 12.5 g/dl (14.0-17.9); LYMPHOCYTES # (AUTO) 2.1 X10'3 (1.1-4.8); LYMPHOCYTES % (AUTO) 9.3 % (21-51); MEAN CORPUSCULAR HEMOGLOBIN 30.8 PG (27.0-31.0); MEAN CORPUSCULAR HGB CONC 33.6 g/dL (33.0-36.5); MEAN CORPUSCULAR VOLUME 91.7 FL (78-98); MEAN PLATELET VOLUME 7.1 FL (7.4-10.4); MONOCYTES % (AUTO) 9.1 % (2-12); NEUTROPHILS # (AUTO) 17.7 X10'3 (1.8-7.7); NEUTROPHILS % (AUTO) 80.2 % (42-75); PLATELET COUNT 614 X10'3 (140-440); RED BLOOD COUNT 4.07 X10'6 (4.70-6.10); RED CELL DISTRIBUTION WIDTH 13.7 % (11.5-14.5); WHITE BLOOD COUNT 22.1 X10'3 (4.5-11.0)
[2023-10-10 06:54] LABS: ALANINE AMINOTRANSFERASE 16 U/L (12-78); ALBUMIN 2.2 G/DL (3.4-5.0); ALBUMIN/GLOBULIN RATIO 0.5 (1.1-1.5); ALKALINE PHOSPHATASE 50 IU/L (46-116); ANION GAP 6 (8-16); ASPARTATE AMINO TRANSFERASE 12 U/L (10-37); BILIRUBIN,TOTAL 0.4 MG/DL (0.1-1.0); BLOOD UREA NITROGEN 4 MG/DL (7-18); BUN/CREATININE RATIO 7.4 (10.0-20.0); CALCIUM 8.5 MG/DL (8.5-10.1); CHLORIDE 99 MMOL/L (99-107); CREATININE 0.54 MG/DL (0.60-1.10); GLUCOSE 93 MG/DL (70-104); POTASSIUM 3.9 MMOL/L (3.5-5.1); SODIUM 134 MMOL/L (135-145); TOTAL CARBON DIOXIDE 28.6 MMOL/L (24-32); TOTAL PROTEIN 6.4 G/DL (6.4-8.2); eCRCL 177 ML/MIN; eGFR > 90 ML/MIN
[2023-10-10 08:00] VITALS: RESP 18; O2SAT 93
[2023-10-10 20:00] VITALS: BP 121/81; PULSE 86; RESP 16; TEMP 98.5; O2SAT 96
[2023-10-10 22:00] VITALS: BP 130/82; PULSE 73; RESP 18; TEMP 97.5; O2SAT 96
[2023-10-11 06:16] LABS: BASOPHILS # (AUTO) 0.1 X10'3 (0-0.2); BASOPHILS % (AUTO) 0.6 % (0-1); HEMOGLOBIN 12.3 g/dl (14.0-17.9); MONOCYTES # (AUTO) 1.8 X10'3 (0-0.9); MONOCYTES % (AUTO) 8.1 % (2-12)
[2023-10-11 06:18] LABS: EOSINOPHILS # (AUTO) 0.5 X10'3 (0-0.9); EOSINOPHILS % (AUTO) 2.2 % (0-6); HEMATOCRIT 37.2 % (42.0-52.0); LYMPHOCYTES % (AUTO) 8.7 % (21-51); MEAN CORPUSCULAR HEMOGLOBIN 30.4 PG (27.0-31.0); MEAN CORPUSCULAR HGB CONC 33.1 g/dL (33.0-36.5); MEAN CORPUSCULAR VOLUME 91.9 FL (78-98); MEAN PLATELET VOLUME 7.6 FL (7.4-10.4); NEUTROPHILS # (AUTO) 18.2 X10'3 (1.8-7.7); NEUTROPHILS % (AUTO) 80.4 % (42-75); PLATELET COUNT 615 X10'3 (140-440); RED BLOOD COUNT 4.05 X10'6 (4.70-6.10); RED CELL DISTRIBUTION WIDTH 13.5 % (11.5-14.5); WHITE BLOOD COUNT 22.7 X10'3 (4.5-11.0)
[2023-10-11 06:35] LABS: ALANINE AMINOTRANSFERASE 23 U/L (12-78); ALBUMIN 2.2 G/DL (3.4-5.0); ALBUMIN/GLOBULIN RATIO 0.5 (1.1-1.5); ALKALINE PHOSPHATASE 52 IU/L (46-116); ANION GAP 9 (8-16); ASPARTATE AMINO TRANSFERASE 17 U/L (10-37); BILIRUBIN,TOTAL 0.5 MG/DL (0.1-1.0); BLOOD UREA NITROGEN 6 MG/DL (7-18); CHLORIDE 99 MMOL/L (99-107); GLUCOSE 92 MG/DL (70-104); POTASSIUM 3.9 MMOL/L (3.5-5.1); SODIUM 137 MMOL/L (135-145); TOTAL CARBON DIOXIDE 29.4 MMOL/L (24-32); TOTAL PROTEIN 6.8 G/DL (6.4-8.2); eCRCL 191 ML/MIN; eGFR > 90 ML/MIN
[2023-10-11 06:37] LABS: LARGE PLATELETS FEW; PLATELET ESTIMATE INCREASED
[2023-10-11 07:13] VITALS: BP 123/79; PULSE 96; RESP 16; TEMP 98.4; O2SAT 97
[2023-10-11 07:59] VITALS: RESP 16; O2SAT 97
[2023-10-11 11:00] VITALS: BP 144/88; PULSE 78; RESP 16; TEMP 97.6; O2SAT 98
[2023-10-11] MEDS ORDERED: potassium Cl 20 mEq SR tablet PO PRN (13:50)
[2023-10-11] MEDS ORDERED: Dextrose 10%-water IV solution 1,000 ML IV PRN (13:50)
[2023-10-11] MEDS ORDERED: potassium Cl 40MEQ/1/2NS 520ml 520 ML IV PRN (13:50)
[2023-10-11] MEDS ORDERED: Neutra Phos packet PO PRN (13:50)
[2023-10-11] MEDS ORDERED: magnesium 2GM in 50ml NS 50 ML IV PRN (13:50)
[2023-10-11] MEDS ORDERED: magnesium Cl slow-release 64mg tablet PO PRN (13:50)
[2023-10-11] MEDS ORDERED: magnesium 4gm in 100ml NS 100 ML IV PRN (13:50)
[2023-10-11] MEDS ORDERED: sodium phosphate inj. 15 MMOL in dextrose 5%-water 250 ML IV PRN (13:50)
[2023-10-11] MEDS ORDERED: sodium phosphate inj. 30 MMOL in dextrose 5%-water 250 ML IV PRN (13:50)
[2023-10-11 14:56] LABS: MAGNESIUM 2.1 MG/DL (1.5-2.4); PHOSPHORUS 4.8 MG/DL (2.3-4.5); PREALBUMIN 11.5 MG/DL (19-36); TRIGLYCERIDES 98 MG/DL (20-135)
[2023-10-11 15:59] LABS: ALANINE AMINOTRANSFERASE 21 U/L (12-78); ALBUMIN 2.2 G/DL (3.4-5.0); ALBUMIN/GLOBULIN RATIO 0.4 (1.1-1.5); ALKALINE PHOSPHATASE 54 IU/L (46-116); ANION GAP 11 (8-16); ASPARTATE AMINO TRANSFERASE 14 U/L (10-37); BILIRUBIN,TOTAL 0.5 MG/DL (0.1-1.0); BLOOD UREA NITROGEN 7 MG/DL (7-18); BUN/CREATININE RATIO 12.7 (10.0-20.0); CALCIUM 8.9 MG/DL (8.5-10.1); CHLORIDE 95 MMOL/L (99-107); CREATININE 0.55 MG/DL (0.60-1.10); GLUCOSE 95 MG/DL (70-104); POTASSIUM 3.9 MMOL/L (3.5-5.1); SODIUM 132 MMOL/L (135-145); TOTAL CARBON DIOXIDE 26.2 MMOL/L (24-32); TOTAL PROTEIN 7.1 G/DL (6.4-8.2); eCRCL 174 ML/MIN; eGFR > 90 ML/MIN
[2023-10-11] MEDS: ZINC/COPPER/MANGANESE/SELENIUM 1 ML, chromic chloride inj. 10 MCG in AA 5%/CALCIUM/LYTE... IV SCH (17:19)
[2023-10-11 18:00] VITALS: BP 123/81; PULSE 70; RESP 16; TEMP 97.1; O2SAT 95
[2023-10-11 19:30] VITALS: RESP 16; O2SAT 95
[2023-10-11] MEDS: K and/or MAG REPLACEMENT MC SCH (20:00)
[2023-10-11] MEDS: fat emulsion 20% inj. 100 ML IV SCH (21:14)
[2023-10-11 22:00] VITALS: BP 143/81; PULSE 55; RESP 16; TEMP 98.4; O2SAT 97
[2023-10-12 03:53] LABS: BASOPHILS # (AUTO) 0.1 X10'3 (0-0.2); HEMOGLOBIN 11.7 g/dl (14.0-17.9); RED CELL DISTRIBUTION WIDTH 13.7 % (11.5-14.5)
[2023-10-12 03:55] LABS: BASOPHILS % (AUTO) 0.5 % (0-1); EOSINOPHILS # (AUTO) 0.5 X10'3 (0-0.9); EOSINOPHILS % (AUTO) 2.3 % (0-6); HEMATOCRIT 35.9 % (42.0-52.0); LYMPHOCYTES # (AUTO) 1.7 X10'3 (1.1-4.8); LYMPHOCYTES % (AUTO) 7.3 % (21-51); MEAN CORPUSCULAR HEMOGLOBIN 29.7 PG (27.0-31.0); MEAN CORPUSCULAR HGB CONC 32.7 g/dL (33.0-36.5); MEAN CORPUSCULAR VOLUME 90.8 FL (78-98); MEAN PLATELET VOLUME 6.7 FL (7.4-10.4); MONOCYTES # (AUTO) 1.7 X10'3 (0-0.9); MONOCYTES % (AUTO) 7.3 % (2-12); NEUTROPHILS # (AUTO) 18.9 X10'3 (1.8-7.7); NEUTROPHILS % (AUTO) 82.6 % (42-75); PLATELET COUNT 642 X10'3 (140-440); RED BLOOD COUNT 3.95 X10'6 (4.70-6.10); WHITE BLOOD COUNT 22.9 X10'3 (4.5-11.0)
[2023-10-12 04:11] LABS: ALANINE AMINOTRANSFERASE 24 U/L (12-78); ALBUMIN 2.1 G/DL (3.4-5.0); ALBUMIN/GLOBULIN RATIO 0.5 (1.1-1.5); ALKALINE PHOSPHATASE 50 IU/L (46-116); ANION GAP 6 (8-16); ASPARTATE AMINO TRANSFERASE 18 U/L (10-37); BILIRUBIN,TOTAL 0.5 MG/DL (0.1-1.0); BLOOD UREA NITROGEN 6 MG/DL (7-18); BUN/CREATININE RATIO 10.9 (10.0-20.0); CALCIUM 8.5 MG/DL (8.5-10.1); CHLORIDE 99 MMOL/L (99-107); CREATININE 0.55 MG/DL (0.60-1.10); GLUCOSE 121 MG/DL (70-104); MAGNESIUM 1.8 MG/DL (1.5-2.4); POTASSIUM 3.4 MMOL/L (3.5-5.1); SODIUM 136 MMOL/L (135-145); TOTAL PROTEIN 6.6 G/DL (6.4-8.2); eCRCL 174 ML/MIN; eGFR > 90 ML/MIN
[2023-10-12] MEDS: MVI, adult No.4 with vit. K 10 ML in dextrose 5% water 500ml 500 ML IV SCH (05:29)
[2023-10-12 06:53] VITALS: BP 134/87; PULSE 72; RESP 16; TEMP 98.3; O2SAT 95
[2023-10-12 07:00] VITALS: RESP 16; O2SAT 95
[2023-10-12] MEDS: oxyCODONE/APAP 10/325mg tablet PO PRN (08:03)
[2023-10-12 11:00] VITALS: BP 128/83; PULSE 86; RESP 14; TEMP 98.8; O2SAT 98
[2023-10-12] MEDS: ZINC/COPPER/MANGANESE/SELENIUM 1 ML, chromic chloride inj. 10 MCG in AA 5%/CALCIUM/LYTE... IV SCH (17:13)
[2023-10-12 18:00] VITALS: BP 131/84; PULSE 68; RESP 16; TEMP 98.2; O2SAT 100
[2023-10-12 20:00] VITALS: RESP 16; O2SAT 99
[2023-10-12] MEDS: potassium Cl 20 mEq SR tablet PO PRN (20:14)
[2023-10-12 22:00] VITALS: BP 128/68; PULSE 69; RESP 20; TEMP 99.2; O2SAT 98
[2023-10-13 06:00] VITALS: BP 132/82; PULSE 76; RESP 24; TEMP 99.5; O2SAT 97
[2023-10-13 06:04] LABS: BASOPHILS # (AUTO) 0.1 X10'3 (0-0.2); EOSINOPHILS # (AUTO) 0.6 X10'3 (0-0.9); LYMPHOCYTES % (AUTO) 7.4 % (21-51); PLATELET COUNT 609 X10'3 (140-440); RED CELL DISTRIBUTION WIDTH 13.6 % (11.5-14.5)
[2023-10-13 06:06] LABS: BASOPHILS % (AUTO) 0.5 % (0-1); EOSINOPHILS % (AUTO) 2.4 % (0-6); HEMATOCRIT 35.9 % (42.0-52.0); MEAN CORPUSCULAR HEMOGLOBIN 30.1 PG (27.0-31.0); MEAN CORPUSCULAR HGB CONC 33.3 g/dL (33.0-36.5); MEAN CORPUSCULAR VOLUME 90.5 FL (78-98); MEAN PLATELET VOLUME 6.7 FL (7.4-10.4); MONOCYTES # (AUTO) 1.8 X10'3 (0-0.9); MONOCYTES % (AUTO) 6.9 % (2-12); NEUTROPHILS # (AUTO) 21.9 X10'3 (1.8-7.7); NEUTROPHILS % (AUTO) 82.8 % (42-75); RED BLOOD COUNT 3.97 X10'6 (4.70-6.10)
[2023-10-13 06:10] LABS: WHITE BLOOD COUNT 26.5 X10'3 (4.5-11.0)
[2023-10-13 06:18] LABS: ALANINE AMINOTRANSFERASE 42 U/L (12-78); ALBUMIN 2.2 G/DL (3.4-5.0); ALBUMIN/GLOBULIN RATIO 0.4 (1.1-1.5); ALKALINE PHOSPHATASE 68 IU/L (46-116); ANION GAP 5 (8-16); ASPARTATE AMINO TRANSFERASE 31 U/L (10-37); BILIRUBIN,TOTAL 0.3 MG/DL (0.1-1.0); BLOOD UREA NITROGEN 7 MG/DL (7-18); BUN/CREATININE RATIO 12.5 (10.0-20.0); CALCIUM 8.7 MG/DL (8.5-10.1); CHLORIDE 101 MMOL/L (99-107); CREATININE 0.56 MG/DL (0.60-1.10); GLUCOSE 107 MG/DL (70-104); MAGNESIUM 2.1 MG/DL (1.5-2.4); PHOSPHORUS 4.1 MG/DL (2.3-4.5); POTASSIUM 3.7 MMOL/L (3.5-5.1); SODIUM 136 MMOL/L (135-145); TOTAL PROTEIN 7.1 G/DL (6.4-8.2); eCRCL 171 ML/MIN; eGFR > 90 ML/MIN
[2023-10-13 06:38] LABS: PLATELET ESTIMATE INCREASED; TOTAL CELLS COUNTED 100
[2023-10-13] MEDS ORDERED: Dextrose 10%-water IV solution 1,000 ML IV PRN (07:15)
[2023-10-13 08:00] VITALS: RESP 16
[2023-10-13 10:00] VITALS: BP 138/75; PULSE 88; RESP 16; TEMP 98.9; O2SAT 97
[2023-10-13 18:00] VITALS: BP 121/83; PULSE 94; RESP 22; TEMP 98.2; O2SAT 96
[2023-10-13 20:00] VITALS: RESP 18; O2SAT 96
[2023-10-13 22:00] VITALS: BP 111/66; PULSE 91; RESP 18; TEMP 98.8; O2SAT 99
[2023-10-14] VITALS (7 sets, daily range): BP systolic 109–120; BP diastolic 65–71; PULSE 81–93; RESP 16–20; TEMP 98.3–99.3; O2SAT 96–98
[2023-10-14 06:32] LABS: BASOPHILS # (AUTO) 0.1 X10'3 (0-0.2); EOSINOPHILS # (AUTO) 0.7 X10'3 (0-0.9); HEMATOCRIT 35.7 % (42.0-52.0); HEMOGLOBIN 11.7 g/dl (14.0-17.9); MONOCYTES # (AUTO) 2.1 X10'3 (0-0.9); MONOCYTES % (AUTO) 7.6 % (2-12)
[2023-10-14 06:33] LABS: BASOPHILS % (AUTO) 0.3 % (0-1); EOSINOPHILS % (AUTO) 2.6 % (0-6); LYMPHOCYTES # (AUTO) 1.5 X10'3 (1.1-4.8); LYMPHOCYTES % (AUTO) 5.6 % (21-51); MEAN CORPUSCULAR HGB CONC 32.9 g/dL (33.0-36.5); MEAN CORPUSCULAR VOLUME 91.3 FL (78-98); MEAN PLATELET VOLUME 6.9 FL (7.4-10.4); NEUTROPHILS # (AUTO) 23.3 X10'3 (1.8-7.7); NEUTROPHILS % (AUTO) 83.9 % (42-75); PLATELET COUNT 654 X10'3 (140-440); RED BLOOD COUNT 3.91 X10'6 (4.70-6.10)
[2023-10-14 06:40] LABS: ALANINE AMINOTRANSFERASE 70 U/L (12-78); ALBUMIN 2.3 G/DL (3.4-5.0); ALBUMIN/GLOBULIN RATIO 0.5 (1.1-1.5); ALKALINE PHOSPHATASE 127 IU/L (46-116); ANION GAP 7 (8-16); ASPARTATE AMINO TRANSFERASE 50 U/L (10-37); BILIRUBIN,TOTAL 0.4 MG/DL (0.1-1.0); BLOOD UREA NITROGEN 10 MG/DL (7-18); BUN/CREATININE RATIO 13.7 (10.0-20.0); CALCIUM 8.9 MG/DL (8.5-10.1); CHLORIDE 99 MMOL/L (99-107); CREATININE 0.73 MG/DL (0.60-1.10); GLUCOSE 94 MG/DL (70-104); POTASSIUM 4.6 MMOL/L (3.5-5.1); SODIUM 134 MMOL/L (135-145); TOTAL PROTEIN 7.2 G/DL (6.4-8.2); eCRCL 131 ML/MIN; eGFR > 90 ML/MIN
[2023-10-14 06:46] LABS: WHITE BLOOD COUNT 27.7 X10'3 (4.5-11.0)
[2023-10-14 07:31] LABS: TOTAL CELLS COUNTED 100
[2023-10-14 07:32] LABS: BURR CELLS 1+; PLATELET ESTIMATE INCREASED
[2023-10-14] MEDS ORDERED: IOHEXOL 12MG/ML oral solution 500 ML BOTTLE PO SCH (13:00)
[2023-10-14] MEDS: diatr meglu/diatrizoate 30ml oral sol.-(3 dose) bottle PO SCH (21:53)
[2023-10-15] VITALS (7 sets, daily range): BP systolic 122–132; BP diastolic 69–81; PULSE 91–110; RESP 14–20; TEMP 98.3–99.3; O2SAT 95–98
[2023-10-15 05:57] LABS: ALANINE AMINOTRANSFERASE 70 U/L (12-78); ALBUMIN 2.3 G/DL (3.4-5.0); ALBUMIN/GLOBULIN RATIO 0.5 (1.1-1.5); ALKALINE PHOSPHATASE 158 IU/L (46-116); ANION GAP 7 (8-16); ASPARTATE AMINO TRANSFERASE 32 U/L (10-37); BILIRUBIN,TOTAL 0.6 MG/DL (0.1-1.0); BLOOD UREA NITROGEN 10 MG/DL (7-18); BUN/CREATININE RATIO 14.5 (10.0-20.0); CALCIUM 8.8 MG/DL (8.5-10.1); CHLORIDE 97 MMOL/L (99-107); CREATININE 0.69 MG/DL (0.60-1.10); GLUCOSE 83 MG/DL (70-104); MAGNESIUM 1.9 MG/DL (1.5-2.4); POTASSIUM 3.6 MMOL/L (3.5-5.1); PREALBUMIN 14.6 MG/DL (19-36); SODIUM 132 MMOL/L (135-145); TOTAL CARBON DIOXIDE 27.8 MMOL/L (24-32); TOTAL PROTEIN 7.4 G/DL (6.4-8.2); TRIGLYCERIDES 83 MG/DL (20-135); eCRCL 139 ML/MIN; eGFR > 90 ML/MIN
[2023-10-15 06:12] LABS: BASOPHILS % (AUTO) 0.2 % (0-1); HEMOGLOBIN 11.6 g/dl (14.0-17.9); LYMPHOCYTES # (AUTO) 2.1 X10'3 (1.1-4.8)
[2023-10-15 06:14] LABS: BASOPHILS # (AUTO) 0.1 X10'3 (0-0.2); EOSINOPHILS # (AUTO) 0.6 X10'3 (0-0.9); EOSINOPHILS % (AUTO) 2.2 % (0-6); HEMATOCRIT 34.8 % (42.0-52.0); LYMPHOCYTES % (AUTO) 8.4 % (21-51); MEAN CORPUSCULAR HEMOGLOBIN 30.3 PG (27.0-31.0); MEAN CORPUSCULAR HGB CONC 33.2 g/dL (33.0-36.5); MEAN CORPUSCULAR VOLUME 91.3 FL (78-98); MONOCYTES # (AUTO) 2.1 X10'3 (0-0.9); MONOCYTES % (AUTO) 8.3 % (2-12); NEUTROPHILS # (AUTO) 20.4 X10'3 (1.8-7.7); NEUTROPHILS % (AUTO) 80.9 % (42-75); PLATELET COUNT 634 X10'3 (140-440); RED BLOOD COUNT 3.81 X10'6 (4.70-6.10); RED CELL DISTRIBUTION WIDTH 13.8 % (11.5-14.5)
[2023-10-15 06:30] LABS: WHITE BLOOD COUNT 25.3 X10'3 (4.5-11.0)
[2023-10-15 08:05] LABS: BURR CELLS 1+; TOTAL CELLS COUNTED 100
[2023-10-15 08:06] LABS: LARGE PLATELETS FEW; PLATELET ESTIMATE INCREASED
[2023-10-15] MEDS ORDERED: iohexol 300mg/ml 100ml inj. ONE (09:44)
[2023-10-15] MEDS: lactose-reduced food (Ensure Enlive) - 237ml bottle PO SCH (18:00)
[2023-10-16 07:01] VITALS: BP 128/72; PULSE 97; RESP 14; TEMP 98.6; O2SAT 96
[2023-10-16 07:40] VITALS: RESP 14; O2SAT 96
[2023-10-16 10:00] VITALS: BP 128/73; PULSE 73; RESP 16; TEMP 98.3; O2SAT 99
[2023-10-16 18:00] VITALS: BP 130/69; PULSE 106; RESP 18; TEMP 99.5; O2SAT 96
[2023-10-16 20:00] VITALS: RESP 18; O2SAT 96
[2023-10-16 22:00] VITALS: BP 132/74; PULSE 95; RESP 18; TEMP 98.5; O2SAT 98
[2023-10-17 06:27] VITALS: BP 118/70; PULSE 92; RESP 18; TEMP 97.8; O2SAT 98
[2023-10-17 08:22] VITALS: RESP 18; O2SAT 98
[2023-10-17 09:35] LABS: BASOPHILS # (AUTO) 0.1 X10'3 (0-0.2); BASOPHILS % (AUTO) 0.5 % (0-1); EOSINOPHILS # (AUTO) 0.6 X10'3 (0-0.9); EOSINOPHILS % (AUTO) 2.7 % (0-6); HEMATOCRIT 31.2 % (42.0-52.0); HEMOGLOBIN 10.4 g/dl (14.0-17.9); LYMPHOCYTES # (AUTO) 1.2 X10'3 (1.1-4.8); LYMPHOCYTES % (AUTO) 5.8 % (21-51); MEAN CORPUSCULAR HEMOGLOBIN 29.9 PG (27.0-31.0); MEAN CORPUSCULAR HGB CONC 33.2 g/dL (33.0-36.5); MEAN CORPUSCULAR VOLUME 90.2 FL (78-98); MEAN PLATELET VOLUME 6.8 FL (7.4-10.4); MONOCYTES % (AUTO) 9.9 % (2-12); NEUTROPHILS # (AUTO) 16.5 X10'3 (1.8-7.7); NEUTROPHILS % (AUTO) 81.1 % (42-75); PLATELET COUNT 570 X10'3 (140-440); RED BLOOD COUNT 3.46 X10'6 (4.70-6.10); RED CELL DISTRIBUTION WIDTH 13.7 % (11.5-14.5); WHITE BLOOD COUNT 20.3 X10'3 (4.5-11.0)
[2023-10-17 11:00] VITALS: BP 122/71; PULSE 87; RESP 18; TEMP 98.8; O2SAT 98
[2023-10-17 18:00] VITALS: BP 130/73; PULSE 97; RESP 16; TEMP 98.9; O2SAT 97
[2023-10-17 20:00] VITALS: RESP 16; O2SAT 97
[2023-10-17 22:00] VITALS: BP 121/74; PULSE 95; RESP 20; TEMP 97.9; O2SAT 99
[2023-10-18 06:00] VITALS: BP 112/65; PULSE 84; RESP 20; TEMP 97.3; O2SAT 100
[2023-10-18 06:51] LABS: BASOPHILS # (AUTO) 0.1 X10'3 (0-0.2); BASOPHILS % (AUTO) 0.5 % (0-1); EOSINOPHILS # (AUTO) 0.6 X10'3 (0-0.9); EOSINOPHILS % (AUTO) 3.2 % (0-6); HEMATOCRIT 31.8 % (42.0-52.0); HEMOGLOBIN 10.4 g/dl (14.0-17.9); LYMPHOCYTES # (AUTO) 2.3 X10'3 (1.1-4.8); LYMPHOCYTES % (AUTO) 11.7 % (21-51); MEAN CORPUSCULAR HEMOGLOBIN 29.7 PG (27.0-31.0); MEAN CORPUSCULAR HGB CONC 32.6 g/dL (33.0-36.5); MONOCYTES # (AUTO) 2.2 X10'3 (0-0.9); MONOCYTES % (AUTO) 11.4 % (2-12); NEUTROPHILS # (AUTO) 14.1 X10'3 (1.8-7.7); NEUTROPHILS % (AUTO) 73.2 % (42-75); PLATELET COUNT 592 X10'3 (140-440); RED CELL DISTRIBUTION WIDTH 13.9 % (11.5-14.5); WHITE BLOOD COUNT 19.2 X10'3 (4.5-11.0)
[2023-10-18 07:41] LABS: ALANINE AMINOTRANSFERASE 60 U/L (12-78); ALBUMIN 2.2 G/DL (3.4-5.0); ALBUMIN/GLOBULIN RATIO 0.4 (1.1-1.5); ALKALINE PHOSPHATASE 220 IU/L (46-116); ANION GAP 8 (8-16); ASPARTATE AMINO TRANSFERASE 35 U/L (10-37); BILIRUBIN,TOTAL 0.3 MG/DL (0.1-1.0); BLOOD UREA NITROGEN 12 MG/DL (7-18); BUN/CREATININE RATIO 20.7 (10.0-20.0); CHLORIDE 99 MMOL/L (99-107); CREATININE 0.58 MG/DL (0.60-1.10); GLUCOSE 78 MG/DL (70-104); POTASSIUM 3.9 MMOL/L (3.5-5.1); SODIUM 135 MMOL/L (135-145); TOTAL CARBON DIOXIDE 28.1 MMOL/L (24-32); TOTAL PROTEIN 7.3 G/DL (6.4-8.2); eCRCL 164 ML/MIN; eGFR > 90 ML/MIN
[2023-10-18 10:00] VITALS: BP 125/75; PULSE 92; RESP 16; TEMP 97.6; O2SAT 100
== END 2023-10-18 14:01 | disposition home or self-care (01) | DRG 231 ==
LOC: ER 14:11 → ED HOLD 15:39 → SUR 3N 18:34
PROVIDERS: ADMIT Internal Medicine; ATTEND Internal Medicine
PROC: BW211ZZ Computerized Tomography (CT Scan) of Abdomen and Pelvis using Low Osmolar Contrast (ICD-10-PCS; 2023-10-03)
PROC: 0D1N0Z4 Bypass Sigmoid Colon to Cutaneous, Open Approach (ICD-10-PCS; 2023-10-08)
PROC: 0D9670Z Drainage of Stomach with Drainage Device, Via Natural or Artificial Opening (ICD-10-PCS; 2023-10-08)
PROC: BW211ZZ Computerized Tomography (CT Scan) of Abdomen and Pelvis using Low Osmolar Contrast (ICD-10-PCS; 2023-10-08)
PROC: 0DBN0ZZ Excision of Sigmoid Colon, Open Approach (ICD-10-PCS; principal; 2023-10-08 18:55)
PROC: BW211ZZ Computerized Tomography (CT Scan) of Abdomen and Pelvis using Low Osmolar Contrast (ICD-10-PCS; 2023-10-15)
DX: C18.7 Malignant neoplasm of sigmoid colon (principal); K56.609 Unspecified intestinal obstruction, unspecified as to partial versus complete obstruction; F25.9 Schizoaffective disorder, unspecified; N13.30 Unspecified hydronephrosis; K57.32 Diverticulitis of large intestine without perforation or abscess without bleeding; F15.10 Other stimulant abuse, uncomplicated; D72.829 Elevated white blood cell count, unspecified; K66.0 Peritoneal adhesions (postprocedural) (postinfection); Z59.00 Homelessness unspecified
CPT/HCPCS: 36415; 73610; 74018; 74176; 74177; 76942; 80048; 80053; 80076; 80305; 81003; 82271; 82948; 83605; 83690; 83735; 84100; 84132; 84134; 84145; 84478; 85007; 85008; 85025; 86140; 87040; 87081; 99285; A4421; A4615; A4618; A4649; A6253; A6258; A6446; A6449; A7000; C1751; C1758; G0378; J0131; J1100; J1170; J1644; J1956; J2250; J2270; J2274; J2405; J2543; J2704; J3010; J3480; J3490; J7030; J7040; J7042; J7060; J7120; Q9963; Q9967

== ENCOUNTER 2023-12-01 18:19 | Emergency (ER) | payer MEDICAID ==
[~2023-12-01] VITALS: Ht 170.2 cm; Wt 75.0 kg
[~2023-12-01 18:19] MED LIST changes: -AMOX-117 PO; +NO HOME MEDS
[2023-12-01 18:31] VITALS: BP 128/81; PULSE 100; RESP 20; TEMP 98.1; O2SAT 98
== END 2023-12-01 19:14 | disposition left against medical advice (07) ==
LOC: ER 18:20
DX: K94.00 Colostomy complication, unspecified (principal); Z53.21 Procedure and treatment not carried out due to patient leaving prior to being seen by health care provider
CPT/HCPCS: A4371; A4421

== ENCOUNTER 2024-01-07 09:10 | Emergency (ER) | payer MEDICAID ==
[~2024-01-07] VITALS: Ht 167.6 cm; Wt 76.5 kg
[2024-01-07 10:18] VITALS: TEMP 98.3
[2024-01-07 11:46] VITALS: BP 123/76; PULSE 98; RESP 18; O2SAT 97
== END 2024-01-07 11:49 | disposition home or self-care (01) ==
LOC: ER 09:10
DX: K94.01 Colostomy hemorrhage (principal); F12.90 Cannabis use, unspecified, uncomplicated; Z72.89 Other problems related to lifestyle; Z60.2 Problems related to living alone
CPT/HCPCS: 99281; A4421

== ENCOUNTER 2024-01-13 09:03 | Emergency (ER) | payer MEDICAID ==
[~2024-01-13] VITALS: Ht 167.6 cm; Wt 72.7 kg
[2024-01-13 09:04] VITALS: BP 135/70; PULSE 82; RESP 16; TEMP 98; O2SAT 98
== END 2024-01-13 09:17 | disposition home or self-care (01) ==
LOC: ER 09:03
DX: K94.00 Colostomy complication, unspecified (principal); F12.90 Cannabis use, unspecified, uncomplicated
CPT/HCPCS: 99281; A4421

== ENCOUNTER → 2024-01-16 | Emergency (ER) | payer MEDICAID ==
[~2024-01-16] VITALS: Ht 167.6 cm; Wt 74.0 kg
[2024-01-16 13:08] VITALS: BP 122/79; PULSE 98; RESP 16; TEMP 98.4; O2SAT 98
== END | disposition left against medical advice (07) ==
LOC: ER 13:03
DX: K94.09 Other complications of colostomy (principal); Z53.21 Procedure and treatment not carried out due to patient leaving prior to being seen by health care provider
CPT/HCPCS: A4421

== ENCOUNTER 2024-01-23 08:15 | Outpatient (CLI) | payer MEDICAID ==
[2024-01-23] MEDS ORDERED: diatr meglu/diatrizoate 30ml oral sol.-(3 dose) bottle ONE (08:48)
== END 2024-01-23 23:59 | disposition home or self-care (01) ==
LOC: RAD 08:15
PROVIDERS: ATTEND Surgery
DX: Z01.818 Encounter for other preprocedural examination (principal); Z93.3 Colostomy status
CPT/HCPCS: 74176; Q9963

== ENCOUNTER 2024-01-26 19:52 | Emergency (ER) | payer MEDICAID ==
[~2024-01-26] VITALS: Ht 167.6 cm; Wt 75.2 kg
[2024-01-26 19:55] VITALS: TEMP 98.2
[2024-01-26 20:33] VITALS: BP 132/74; PULSE 75; RESP 17; O2SAT 99
== END 2024-01-26 20:37 | disposition home or self-care (01) ==
LOC: ER 19:53
DX: K94.09 Other complications of colostomy (principal); F12.90 Cannabis use, unspecified, uncomplicated; Z72.89 Other problems related to lifestyle; Z60.2 Problems related to living alone
CPT/HCPCS: 99281; A4421

== ENCOUNTER 2024-02-02 14:13 | Emergency (ER) | payer MEDICAID ==
[~2024-02-02] VITALS: Ht 167.6 cm; Wt 77.1 kg
[2024-02-02 14:15] VITALS: BP 115/69; PULSE 81; RESP 18; TEMP 99; O2SAT 97
== END 2024-02-02 14:48 | disposition home or self-care (01) ==
LOC: ER 14:14
DX: Z43.3 Encounter for attention to colostomy (principal); F12.90 Cannabis use, unspecified, uncomplicated
CPT/HCPCS: 99281; A4421

== ENCOUNTER 2024-02-10 16:32 | Emergency (ER) | payer MEDICAID ==
[~2024-02-10] VITALS: Ht 167.6 cm; Wt 75.8 kg
[2024-02-10 16:53] VITALS: BP 117/71; PULSE 71; RESP 18; O2SAT 98
[2024-02-10 17:17] VITALS: TEMP 98.2
== END 2024-02-10 17:20 | disposition home or self-care (01) ==
LOC: ER 16:32
DX: K94.00 Colostomy complication, unspecified (principal); F12.90 Cannabis use, unspecified, uncomplicated
CPT/HCPCS: 99281; A4421

== ENCOUNTER 2024-02-16 12:43 | Emergency (ER) | payer MEDICAID ==
[~2024-02-16] VITALS: Ht 167.6 cm; Wt 78.3 kg
[2024-02-16 13:15] VITALS: BP 122/71; PULSE 75; TEMP 99.1; O2SAT 99
[2024-02-16 14:13] VITALS: RESP 16
== END 2024-02-16 14:15 | disposition home or self-care (01) ==
LOC: ER 12:44
DX: Z93.3 Colostomy status (principal); F12.90 Cannabis use, unspecified, uncomplicated; Z72.89 Other problems related to lifestyle; Z60.2 Problems related to living alone
CPT/HCPCS: 99281; A4421

== ENCOUNTER 2024-04-30 13:56 | Emergency (ER) | payer MEDICAID ==
[~2024-04-30] VITALS: Ht 167.6 cm; Wt 81.8 kg
[2024-04-30 13:59] VITALS: BP 117/77; PULSE 79; RESP 14; TEMP 98; O2SAT 100
== END 2024-04-30 14:29 | disposition home or self-care (01) ==
LOC: ER 13:57
DX: Z93.3 Colostomy status (principal); F12.90 Cannabis use, unspecified, uncomplicated
CPT/HCPCS: 99281; A4421

== ENCOUNTER 2024-05-09 11:42 | Emergency (ER) | payer MEDICAID ==
[~2024-05-09] VITALS: Ht 167.6 cm; Wt 82.3 kg
[2024-05-09 11:45] VITALS: BP 139/79; PULSE 79; RESP 16; TEMP 98.2; O2SAT 99
== END 2024-05-09 14:20 | disposition left against medical advice (07) ==
LOC: ER 11:42
DX: Z53.21 Procedure and treatment not carried out due to patient leaving prior to being seen by health care provider (principal)
CPT/HCPCS: A4371; A4421; A6449